=== PATIENT | male | born 1940 | race Caucasian/White ===

== ENCOUNTER 2024-01-09 02:13 | Outpatient (CLI) | payer MEDICARE, SELFPAY ==
[2024-01-09 11:38] LABS: Abs Immature Grans 0.14 10^3/uL (0.0-0.06); Absolute Basophil Count 0.02 10^3/uL (0.0-0.2); Absolute Eosinophil Count 0.02 10^3/uL (0.0-0.7); Absolute Lymphocyte Count 0.35 10^3/uL (1.2-3.4); Absolute Monocyte Count 0.62 10^3/uL (0.1-0.8); Absolute Neutrophil Count 2.24 10^3/uL (1.2-6.7); Basophils % 0.6 %; Eosinophils % 0.6 %; HCT 36.4 % (40.0-50.0); Immature Grans % 4.1 %; Lymphocytes % 10.3 %; MCH 31.7 pg (27.0-33.0); MCV 96 fL (80-95); MPV 8.3 fL (8.0-11.0); Monocytes % 18.3 %; Neutrophils % 66.1 %; Platelet Count 135 10^3/uL (130-400); RBC 3.79 10^6/uL (4.36-5.78); RDW 14.2 % (11.8-14.1); RDW-SD 43.6 fL; WBC 3.39 10^3/uL (4.4-10.8)
[2024-01-09 12:04] LABS: ALT 31 U/L (16-63); AST 18 U/L (15-37); Albumin 3.2 g/dL (3.4-5.0); Alkaline Phosphatase 88 U/L (46-116); Anion Gap 5.9 mmol/L (3-11); BUN 15 mg/dL (7-18); Bilirubin, Total 0.56 mg/dL (0.2-1.0); CO2 31.1 mmol/L (21.0-32.0); CREATININE 1.1 mg/dL (0.70-1.30); Calcium 9.3 mg/dL (8.5-10.1); Chloride 99 mmol/L (98-107); Estimated GFR 67.44 (mL/min/1.73m2); Glucose 118 mg/dL (74-106); Magnesium 2.2 mg/dL (1.8-2.4); Potassium 4.3 mmol/L (3.5-5.1); Sodium 136 mmol/L (136-145); TSH 1.33 uIU/mL (0.36-3.74)
== END 2024-01-09 02:14 | disposition home or self-care (01) ==
LOC: LBO 02:14
PROVIDERS: PCP Internal Medicine; Visit Provider Internal Medicine Medical Oncology
DX: Z79.899 Other long term (current) drug therapy (principal); C79.51 Secondary malignant neoplasm of bone; C45.9 Mesothelioma, unspecified
CPT/HCPCS: 36415; 80053; 83735; 84439; 84443; 85025

== ENCOUNTER 2024-01-31 13:55 | Outpatient (REF) | payer MEDICARE, SELFPAY ==
[2024-01-31 14:02] LABS: Abs Immature Grans 0.12 10^3/uL (0.0-0.06); Absolute Basophil Count 0.01 10^3/uL (0.0-0.2); Absolute Eosinophil Count 0.04 10^3/uL (0.0-0.7); Absolute Lymphocyte Count 0.46 10^3/uL (1.2-3.4); Absolute Neutrophil Count 1.57 10^3/uL (1.2-6.7); Basophils % 0.4 %; Eosinophils % 1.5 %; HCT 29.8 % (40.0-50.0); HGB 9.9 g/dL (13.5-17.5); Immature Grans % 4.4 %; MCHC 33.2 % (32.0-36.0); MCV 99 fL (80-95); MPV 8.9 fL (8.0-11.0); Monocytes % 18.5 %; Neutrophils % 58.2 %; Platelet Count 180 10^3/uL (130-400); RDW 18.4 % (11.8-14.1); RDW-SD 57.4 fL
[2024-01-31 14:29] LABS: ALT 33 U/L (16-63); AST 23 U/L (15-37); Albumin 3.2 g/dL (3.4-5.0); Alkaline Phosphatase 102 U/L (46-116); Anion Gap 6.3 mmol/L (3-11); BUN 12 mg/dL (7-18); Bilirubin, Total 0.35 mg/dL (0.2-1.0); CO2 28.7 mmol/L (21.0-32.0); CREATININE 0.9 mg/dL (0.70-1.30); Calcium 8.5 mg/dL (8.5-10.1); Chloride 102 mmol/L (98-107); FREE T4 0.84 ng/dL (0.76-1.46); Glucose 110 mg/dL (74-106); Magnesium 1.7 mg/dL (1.8-2.4); Potassium 3.9 mmol/L (3.5-5.1); Sodium 137 mmol/L (136-145); TSH 1.76 uIU/mL (0.36-3.74); Total Protein 6.4 g/dL (6.4-8.2)
== END 2024-01-31 13:56 | disposition home or self-care (01) ==
LOC: LBN 13:55
PROVIDERS: PCP Internal Medicine; Visit Provider Internal Medicine Medical Oncology
DX: Z79.899 Other long term (current) drug therapy (principal); C45.9 Mesothelioma, unspecified; Z51.5 Encounter for palliative care; J38.00 Paralysis of vocal cords and larynx, unspecified; C79.9 Secondary malignant neoplasm of unspecified site; C79.51 Secondary malignant neoplasm of bone; R06.02 Shortness of breath; Z71.89 Other specified counseling; R63.4 Abnormal weight loss
CPT/HCPCS: 80053; 83735; 84439; 84443; 85025

== ENCOUNTER 2024-03-12 02:07 | Outpatient (RCR) | payer MEDICARE, SELFPAY ==
[2024-02-21 10:27] LABS: Abs Immature Grans 0.11 10^3/uL (0.0-0.06); Absolute Basophil Count 0.03 10^3/uL (0.0-0.2); Absolute Eosinophil Count 0.04 10^3/uL (0.0-0.7); Absolute Lymphocyte Count 0.37 10^3/uL (1.2-3.4); Absolute Monocyte Count 0.56 10^3/uL (0.1-0.8); Absolute Neutrophil Count 2.18 10^3/uL (1.2-6.7); Basophils % 0.9 %; Eosinophils % 1.2 %; HCT 26.9 % (40.0-50.0); HGB 8.8 g/dL (13.5-17.5); Immature Grans % 3.3 %; Lymphocytes % 11.2 %; MCH 33.5 pg (27.0-33.0); MCHC 32.7 % (32.0-36.0); MCV 102 fL (80-95); MPV 8.6 fL (8.0-11.0); Neutrophils % 66.4 %; Platelet Count 131 10^3/uL (130-400); RBC 2.63 10^6/uL (4.36-5.78); RDW 21.5 % (11.8-14.1); WBC 3.29 10^3/uL (4.4-10.8)
[2024-02-21 10:50] LABS: Anisocytosis 2+; Diff Comment RBC Morph Reviewed; Polychromasia Present
[2024-02-21 10:51] LABS: ALT 28 U/L (16-63); AST 21 U/L (15-37); Albumin 3.1 g/dL (3.4-5.0); Alkaline Phosphatase 101 U/L (46-116); Anion Gap 6.8 mmol/L (3-11); BUN 15 mg/dL (7-18); Bilirubin, Total 0.55 mg/dL (0.2-1.0); CO2 30.2 mmol/L (21.0-32.0); Calcium 8.8 mg/dL (8.5-10.1); Chloride 101 mmol/L (98-107); Estimated GFR 75.61 (mL/min/1.73m2); FREE T4 0.96 ng/dL (0.76-1.46); Glucose 112 mg/dL (74-106); Magnesium 1.8 mg/dL (1.8-2.4); Potassium 4.1 mmol/L (3.5-5.1); Sodium 138 mmol/L (136-145); TSH 1.74 uIU/mL (0.36-3.74); Total Protein 7.1 g/dL (6.4-8.2)
[2024-02-21] MEDS: Normal Saline Flush 10 ML SYR IVP (10:57)
[2024-03-12] MEDS: Normal Saline Flush 10 ML SYR IVP (12:13)
[2024-03-12 12:26] LABS: Abs Immature Grans 0.12 10^3/uL (0.0-0.06); Absolute Basophil Count 0.02 10^3/uL (0.0-0.2); Absolute Eosinophil Count 0.09 10^3/uL (0.0-0.7); Absolute Lymphocyte Count 0.48 10^3/uL (1.2-3.4); Absolute Monocyte Count 0.54 10^3/uL (0.1-0.8); Basophils % 0.8 %; Eosinophils % 3.5 %; HCT 25.5 % (40.0-50.0); HGB 8.3 g/dL (13.5-17.5); Immature Grans % 4.7 %; Lymphocytes % 18.8 %; MCH 34.6 pg (27.0-33.0); MCHC 32.5 % (32.0-36.0); MCV 106 fL (80-95); MPV 9.3 fL (8.0-11.0); Monocytes % 21.2 %; Platelet Count 156 10^3/uL (130-400); RDW-SD 84.9 fL; WBC 2.55 10^3/uL (4.4-10.8)
[2024-03-12 12:37] LABS: Anisocytosis 2+; Macrocytosis 1+
[2024-03-12 13:04] LABS: ALT 33 U/L (16-63); AST 25 U/L (15-37); Alkaline Phosphatase 95 U/L (46-116); Anion Gap 6.8 mmol/L (3-11); BUN 11 mg/dL (7-18); Bilirubin, Total 0.34 mg/dL (0.2-1.0); CO2 29.2 mmol/L (21.0-32.0); CREATININE 1.1 mg/dL (0.70-1.30); Calcium 8.7 mg/dL (8.5-10.1); Chloride 102 mmol/L (98-107); Estimated GFR 67.44 (mL/min/1.73m2); FREE T4 0.81 ng/dL (0.76-1.46); Glucose 112 mg/dL (74-106); Magnesium 1.7 mg/dL (1.8-2.4); Potassium 4.2 mmol/L (3.5-5.1); Sodium 138 mmol/L (136-145); TSH 1.87 uIU/mL (0.36-3.74); Total Protein 6.7 g/dL (6.4-8.2)
== END 2024-03-13 23:59 | disposition home or self-care (01) ==
LOC: INF 02:07
PROVIDERS: PCP Internal Medicine; Visit Provider Internal Medicine Medical Oncology
DX: C45.9 Mesothelioma, unspecified (principal); C79.51 Secondary malignant neoplasm of bone; Z79.899 Other long term (current) drug therapy; Z45.2 Encounter for adjustment and management of vascular access device
CPT/HCPCS: 36591; 80053; 83735; 84439; 84443; 85025

== ENCOUNTER 2024-04-03 02:08 | Outpatient (RCR) | payer MEDICARE, SELFPAY ==
[2024-04-03 09:59] LABS: Abs Immature Grans 0.16 10^3/uL (0.0-0.06); Absolute Basophil Count 0.05 10^3/uL (0.0-0.2); Absolute Eosinophil Count 0.07 10^3/uL (0.0-0.7); Absolute Lymphocyte Count 0.49 10^3/uL (1.2-3.4); Absolute Monocyte Count 0.54 10^3/uL (0.1-0.8); Absolute Neutrophil Count 2.32 10^3/uL (1.2-6.7); Basophils % 1.4 %; Eosinophils % 1.9 %; HCT 29.1 % (40.0-50.0); HGB 9.3 g/dL (13.5-17.5); Immature Grans % 4.4 %; Lymphocytes % 13.5 %; MCH 36.3 pg (27.0-33.0); MCV 114 fL (80-95); MPV 9.2 fL (8.0-11.0); Monocytes % 14.9 %; Neutrophils % 63.9 %; Platelet Count 154 10^3/uL (130-400); RBC 2.56 10^6/uL (4.36-5.78); RDW-SD 91.5 fL; WBC 3.63 10^3/uL (4.4-10.8)
[2024-04-03] MEDS: Normal Saline Flush 10 ML SYR IVP (10:08)
[2024-04-03 10:10] LABS: Diff Comment RBC Morph Reviewed
[2024-04-03 10:11] LABS: Anisocytosis 2+; Macrocytosis 2+; Polychromasia Present
[2024-04-03 10:35] LABS: ALT 47 U/L (16-63); AST 33 U/L (15-37); Albumin 3.3 g/dL (3.4-5.0); Alkaline Phosphatase 87 U/L (46-116); Anion Gap 5.6 mmol/L (3-11); BUN 11 mg/dL (7-18); Bilirubin, Total 0.49 mg/dL (0.2-1.0); CO2 30.4 mmol/L (21.0-32.0); Chloride 104 mmol/L (98-107); Estimated GFR 75.61 (mL/min/1.73m2); FREE T4 0.78 ng/dL (0.76-1.46); Glucose 119 mg/dL (74-106); Magnesium 1.7 mg/dL (1.8-2.4); Potassium 4.3 mmol/L (3.5-5.1); Sodium 140 mmol/L (136-145); TSH 2.56 uIU/mL (0.36-3.74)
== END 2024-04-13 23:59 | disposition home or self-care (01) ==
LOC: INF 02:08
PROVIDERS: PCP Internal Medicine; Visit Provider Internal Medicine Medical Oncology
DX: C79.51 Secondary malignant neoplasm of bone (principal); C45.9 Mesothelioma, unspecified; Z79.899 Other long term (current) drug therapy
CPT/HCPCS: 36591; 80053; 83735; 84439; 84443; 85025

== ENCOUNTER 2024-04-23 02:28 | Outpatient (RCR) | payer MEDICARE, SELFPAY ==
[2024-04-23] MEDS: Normal Saline Flush 10 ML SYR IVP (09:11)
[2024-04-23 09:52] LABS: Abs Immature Grans 0.21 10^3/uL (0.0-0.06); Absolute Basophil Count 0.03 10^3/uL (0.0-0.2); Absolute Eosinophil Count 0.12 10^3/uL (0.0-0.7); Absolute Lymphocyte Count 0.45 10^3/uL (1.2-3.4); Absolute Neutrophil Count 3.16 10^3/uL (1.2-6.7); Basophils % 0.7 %; Eosinophils % 2.6 %; HCT 30.4 % (40.0-50.0); HGB 9.9 g/dL (13.5-17.5); Immature Grans % 4.6 %; Lymphocytes % 9.8 %; MCH 36.7 pg (27.0-33.0); MCHC 32.6 % (32.0-36.0); MCV 113 fL (80-95); MPV 9.2 fL (8.0-11.0); Monocytes % 13.1 %; Neutrophils % 69.2 %; Platelet Count 179 10^3/uL (130-400); RDW 19.1 % (11.8-14.1); RDW-SD 79.3 fL; WBC 4.57 10^3/uL (4.4-10.8)
[2024-04-23 10:04] LABS: ALT 43 U/L (16-63); AST 35 U/L (15-37); Albumin 3.4 g/dL (3.4-5.0); Alkaline Phosphatase 92 U/L (46-116); Anion Gap 2.5 mmol/L (3-11); BUN 15 mg/dL (7-18); Bilirubin, Total 0.57 mg/dL (0.2-1.0); CO2 32.5 mmol/L (21.0-32.0); CREATININE 1.1 mg/dL (0.70-1.30); Calcium 9.1 mg/dL (8.5-10.1); Chloride 104 mmol/L (98-107); Estimated GFR 67.44 (mL/min/1.73m2); FREE T4 0.86 ng/dL (0.76-1.46); Glucose 112 mg/dL (74-106); Magnesium 1.9 mg/dL (1.8-2.4); Potassium 4.3 mmol/L (3.5-5.1); Sodium 139 mmol/L (136-145); TSH 2.41 uIU/mL (0.36-3.74); Total Protein 7.3 g/dL (6.4-8.2)
== END 2024-05-11 23:59 | disposition home or self-care (01) ==
LOC: INF 02:28
PROVIDERS: PCP Internal Medicine; Visit Provider Internal Medicine Medical Oncology
DX: C79.51 Secondary malignant neoplasm of bone (principal); C45.9 Mesothelioma, unspecified; Z79.899 Other long term (current) drug therapy
CPT/HCPCS: 36591; 80053; 83735; 84439; 84443; 85025

== ENCOUNTER 2024-05-21 03:40 | Outpatient (RCR) | payer MEDICARE, SELFPAY ==
[2024-05-21] MEDS: Normal Saline Flush 10 ML SYR IVP (12:28)
[2024-05-21 12:43] LABS: Abs Immature Grans 0.12 10^3/uL (0.0-0.06); Absolute Basophil Count 0.05 10^3/uL (0.0-0.2); Absolute Eosinophil Count 0.09 10^3/uL (0.0-0.7); Absolute Lymphocyte Count 0.47 10^3/uL (1.2-3.4); Absolute Monocyte Count 0.58 10^3/uL (0.1-0.8); Absolute Neutrophil Count 2.27 10^3/uL (1.2-6.7); Basophils % 1.4 %; Eosinophils % 2.5 %; HCT 35.4 % (40.0-50.0); HGB 11.7 g/dL (13.5-17.5); Immature Grans % 3.4 %; Lymphocytes % 13.1 %; MCH 36.9 pg (27.0-33.0); MCHC 33.1 % (32.0-36.0); MCV 112 fL (80-95); MPV 9.5 fL (8.0-11.0); Monocytes % 16.2 %; Neutrophils % 63.4 %; Platelet Count 118 10^3/uL (130-400); RBC 3.17 10^6/uL (4.36-5.78); RDW 16.2 % (11.8-14.1); RDW-SD 67.7 fL; WBC 3.58 10^3/uL (4.4-10.8)
[2024-05-21 13:14] LABS: ALT 35 U/L (16-63); AST 36 U/L (15-37); Albumin 3.6 g/dL (3.4-5.0); Alkaline Phosphatase 86 U/L (46-116); Anion Gap 7.5 mmol/L (3-11); BUN 12 mg/dL (7-18); Bilirubin, Total 0.6 mg/dL (0.2-1.0); CO2 29.5 mmol/L (21.0-32.0); CREATININE 1.1 mg/dL (0.70-1.30); Calcium 9.1 mg/dL (8.5-10.1); Chloride 103 mmol/L (98-107); Estimated GFR 67.44 (mL/min/1.73m2); Glucose 123 mg/dL (74-106); Magnesium 1.8 mg/dL; Potassium 4.2 mmol/L (3.5-5.1); Sodium 140 mmol/L (136-145); TSH 2.64 uIU/mL (0.36-3.74); Total Protein 7.3 g/dL (6.4-8.2)
[2024-05-21 22:08] LABS: T4, Free 0.9 ng/dL (0.8-2.2)
== END 2024-06-11 23:59 | disposition home or self-care (01) ==
LOC: INF 03:40
PROVIDERS: PCP Internal Medicine; Visit Provider Internal Medicine Medical Oncology
DX: C45.9 Mesothelioma, unspecified (principal); C79.51 Secondary malignant neoplasm of bone; Z79.899 Other long term (current) drug therapy
CPT/HCPCS: 36591; 80053; 83735; 84439; 84443; 85025

== ENCOUNTER 2024-06-18 03:06 | Outpatient (RCR) | payer MEDICARE, SELFPAY ==
[2024-06-18 12:56] LABS: Abs Immature Grans 0.09 10^3/uL (0.0-0.06); Absolute Basophil Count 0.06 10^3/uL (0.0-0.2); Absolute Eosinophil Count 0.14 10^3/uL (0.0-0.7); Absolute Lymphocyte Count 0.71 10^3/uL (1.2-3.4); Absolute Monocyte Count 0.61 10^3/uL (0.1-0.8); Absolute Neutrophil Count 2.53 10^3/uL (1.2-6.7); Basophils % 1.4 %; Eosinophils % 3.4 %; HCT 38.5 % (40.0-50.0); HGB 12.7 g/dL (13.5-17.5); Immature Grans % 2.2 %; Lymphocytes % 17.1 %; MCH 36.6 pg (27.0-33.0); MCV 111 fL (80-95); MPV 8.9 fL (8.0-11.0); Monocytes % 14.7 %; Neutrophils % 61.2 %; Platelet Count 102 10^3/uL (130-400); RBC 3.47 10^6/uL (4.36-5.78); RDW 14.7 % (11.8-14.1); WBC 4.14 10^3/uL (4.4-10.8)
[2024-06-18] MEDS: Normal Saline Flush 10 ML SYR IVP (13:07)
[2024-06-18 13:41] LABS: ALT 33 U/L (16-63); AST 32 U/L (15-37); Albumin 3.7 g/dL (3.4-5.0); Alkaline Phosphatase 82 U/L (46-116); Anion Gap 6.6 mmol/L (3-11); BUN 17 mg/dL (7-18); Bilirubin, Total 0.4 mg/dL (0.2-1.0); CO2 28.4 mmol/L (21.0-32.0); Calcium 9.3 mg/dL (8.5-10.1); Chloride 103 mmol/L (98-107); Estimated GFR 75.61 (mL/min/1.73m2); FREE T4 0.81 ng/dL (0.76-1.46); Glucose 112 mg/dL (74-106); Magnesium 1.8 mg/dL; Potassium 4.3 mmol/L (3.5-5.1); Sodium 138 mmol/L (136-145); TSH 2.52 uIU/mL (0.36-3.74); Total Protein 7.4 g/dL (6.4-8.2)
== END 2024-07-11 23:59 | disposition home or self-care (01) ==
LOC: INF 03:06
PROVIDERS: PCP Internal Medicine; Visit Provider Internal Medicine Medical Oncology
DX: C45.9 Mesothelioma, unspecified (principal); C79.51 Secondary malignant neoplasm of bone; Z79.899 Other long term (current) drug therapy
CPT/HCPCS: 36591; 80053; 83735; 84439; 84443; 85025

== ENCOUNTER 2024-07-16 02:08 | Outpatient (RCR) | payer MEDICARE, SELFPAY ==
[2024-07-16] MEDS: Normal Saline Flush 10 ML SYR IVP (13:02)
[2024-07-16 13:45] LABS: Abs Immature Grans 0.06 10^3/uL (0.0-0.06); Absolute Basophil Count 0.05 10^3/uL (0.0-0.2); Absolute Lymphocyte Count 0.65 10^3/uL (1.2-3.4); Absolute Monocyte Count 0.54 10^3/uL (0.1-0.8); Absolute Neutrophil Count 2.32 10^3/uL (1.2-6.7); Basophils % 1.3 %; Eosinophils % 2.7 %; Immature Grans % 1.6 %; Lymphocytes % 17.5 %; MCH 37.4 pg (27.0-33.0); MCHC 35.1 % (32.0-36.0); MCV 106 fL (80-95); MPV 9.7 fL (8.0-11.0); Monocytes % 14.5 %; Neutrophils % 62.4 %; Platelet Count 108 10^3/uL (130-400); RBC 3.48 10^6/uL (4.36-5.78); RDW 14.6 % (11.8-14.1); RDW-SD 56.6 fL; WBC 3.72 10^3/uL (4.4-10.8)
[2024-07-16 14:09] LABS: ALT 31 U/L (16-63); AST 31 U/L (15-37); Albumin 3.6 g/dL (3.4-5.0); Alkaline Phosphatase 90 U/L (46-116); Anion Gap 4.7 mmol/L (3-11); BUN 19 mg/dL (7-18); Bilirubin, Total 0.6 mg/dL (0.2-1.0); CO2 30.3 mmol/L (21.0-32.0); CREATININE 1.1 mg/dL (0.70-1.30); Calcium 9.1 mg/dL (8.5-10.1); Chloride 102 mmol/L (98-107); Estimated GFR 67.02 (mL/min/1.73m2); FREE T4 0.84 ng/dL (0.76-1.46); Glucose 103 mg/dL (74-106); Magnesium 1.7 mg/dL (1.8-2.4); Potassium 4.3 mmol/L (3.5-5.1); Sodium 137 mmol/L (136-145); TSH 2.08 uIU/mL (0.36-3.74); Total Protein 7.2 g/dL (6.4-8.2)
== END 2024-08-11 23:59 | disposition home or self-care (01) ==
LOC: INF 02:08
PROVIDERS: PCP Internal Medicine; Visit Provider Internal Medicine Medical Oncology
DX: C45.9 Mesothelioma, unspecified (principal); C79.51 Secondary malignant neoplasm of bone; Z79.899 Other long term (current) drug therapy
CPT/HCPCS: 36591; 80053; 83735; 84439; 84443; 85025

== ENCOUNTER 2024-09-04 02:40 | Outpatient (RCR) | payer MEDICARE, SELFPAY ==
[2024-08-13] MEDS: Normal Saline Flush 10 ML SYR IVP (13:37)
[2024-08-13 14:05] LABS: HCT 39.5 % (40.0-50.0); HGB 13.4 g/dL (13.5-17.5); MCH 36.2 pg (27.0-33.0); MCHC 33.9 % (32.0-36.0); MCV 107 fL (80-95); MPV 9.1 fL (8.0-11.0); Platelet Count 104 10^3/uL (130-400); RDW 14.5 % (11.8-14.1); RDW-SD 57.3 fL; WBC 5.67 10^3/uL (4.4-10.8)
[2024-08-13 14:23] LABS: Absolute Monocyte Count 0.17 10^3/uL (0.1-0.8); Absolute Neutrophil Count 4.82 10^3/uL (1.2-6.7); Bands % 2 %
[2024-08-13 14:24] LABS: Diff Comment Manual Differential; Macrocytosis 1+; Myelocytes % 3; Promyelocytes % 2
[2024-08-13 14:28] LABS: ALT 39 U/L (16-63); AST 28 U/L (15-37); Albumin 3.7 g/dL (3.4-5.0); Alkaline Phosphatase 77 U/L (46-116); Anion Gap 7.7 mmol/L (3-11); BUN 25 mg/dL (7-18); Bilirubin, Total 0.6 mg/dL (0.2-1.0); CO2 30.3 mmol/L (21.0-32.0); Calcium 8.8 mg/dL (8.5-10.1); Chloride 99 mmol/L (98-107); Estimated GFR 75.14 (mL/min/1.73m2); FREE T4 0.96 ng/dL (0.76-1.46); Glucose 149 mg/dL (74-106); Magnesium 1.8 mg/dL (1.8-2.4); Potassium 4.4 mmol/L (3.5-5.1); Sodium 137 mmol/L (136-145); TSH 1.22 uIU/mL (0.36-3.74); Total Protein 7.2 g/dL (6.4-8.2)
[2024-09-04] MEDS: Normal Saline Flush 10 ML SYR IVP (12:21)
[2024-09-04 12:39] LABS: Abs Immature Grans 0.19 10^3/uL (0.0-0.06); Absolute Basophil Count 0.06 10^3/uL (0.0-0.2); Absolute Lymphocyte Count 0.62 10^3/uL (1.2-3.4); Absolute Monocyte Count 0.53 10^3/uL (0.1-0.8); Absolute Neutrophil Count 2.83 10^3/uL (1.2-6.7); Basophils % 1.4 %; Eosinophils % 4.5 %; HCT 39.2 % (40.0-50.0); HGB 12.9 g/dL (13.5-17.5); Immature Grans % 4.3 %; MCH 34.7 pg (27.0-33.0); MCHC 32.9 % (32.0-36.0); MCV 105 fL (80-95); MPV 9.1 fL (8.0-11.0); Neutrophils % 63.8 %; Platelet Count 127 10^3/uL (130-400); RBC 3.72 10^6/uL (4.36-5.78); RDW 12.7 % (11.8-14.1); RDW-SD 49.5 fL; WBC 4.43 10^3/uL (4.4-10.8)
[2024-09-04 13:05] LABS: ALT 31 U/L (16-63); AST 23 U/L (15-37); Albumin 3.5 g/dL (3.4-5.0); Alkaline Phosphatase 76 U/L (46-116); Anion Gap 5.6 mmol/L (3-11); BUN 18 mg/dL (7-18); Bilirubin, Total 0.5 mg/dL (0.2-1.0); CO2 31.4 mmol/L (21.0-32.0); Calcium 8.9 mg/dL (8.5-10.1); Chloride 102 mmol/L (98-107); Estimated GFR 75.14 (mL/min/1.73m2); FREE T4 0.83 ng/dL (0.76-1.46); Glucose 103 mg/dL (74-106); Magnesium 1.9 mg/dL (1.8-2.4); Potassium 4.4 mmol/L (3.5-5.1); Sodium 139 mmol/L (136-145); TSH 2.02 uIU/mL (0.36-3.74); Total Protein 6.9 g/dL (6.4-8.2)
== END 2024-09-10 23:59 | disposition home or self-care (01) ==
LOC: INF 02:40
PROVIDERS: PCP Internal Medicine; Visit Provider Internal Medicine Medical Oncology
DX: C79.51 Secondary malignant neoplasm of bone (principal); Z79.899 Other long term (current) drug therapy; Z45.2 Encounter for adjustment and management of vascular access device
CPT/HCPCS: 36591; 80053; 83735; 84439; 84443; 85025

== ENCOUNTER 2024-09-24 02:44 | Outpatient (RCR) | payer MEDICARE, SELFPAY ==
[2024-09-24] MEDS: Normal Saline Flush 10 ML SYR IVP ×2 (10:50→11:14)
[2024-09-24 11:03] LABS: Abs Immature Grans 0.15 10^3/uL (0.0-0.06); HCT 40.5 % (40.0-50.0); HGB 13.5 g/dL (13.5-17.5); Immature Grans % 4.3 %; MCH 33.9 pg (27.0-33.0); MCHC 33.3 % (32.0-36.0); MCV 102 fL (80-95); MPV 9.1 fL (8.0-11.0); Platelet Count 114 10^3/uL (130-400); RBC 3.98 10^6/uL (4.36-5.78); RDW 12.3 % (11.8-14.1); RDW-SD 46.2 fL; WBC 3.51 10^3/uL (4.4-10.8)
[2024-09-24 11:42] LABS: ALT 27 U/L (16-63); AST 27 U/L (15-37); Albumin 3.5 g/dL (3.4-5.0); Alkaline Phosphatase 83 U/L (46-116); Anion Gap 6.7 mmol/L (3-11); BUN 14 mg/dL (7-18); Bilirubin, Total 0.6 mg/dL (0.2-1.0); CO2 30.3 mmol/L (21.0-32.0); Calcium 8.7 mg/dL (8.5-10.1); Chloride 103 mmol/L (98-107); Estimated GFR 75.14 (mL/min/1.73m2); Glucose 117 mg/dL (74-106); Magnesium 1.9 mg/dL (1.8-2.4); Potassium 4.0 mmol/L (3.5-5.1); Sodium 140 mmol/L (136-145); TSH 2.38 uIU/mL (0.36-3.74); Total Protein 6.9 g/dL (6.4-8.2)
== END 2024-10-11 23:59 | disposition home or self-care (01) ==
LOC: INF 02:44
PROVIDERS: PCP Internal Medicine; Visit Provider Internal Medicine Medical Oncology
DX: C79.51 Secondary malignant neoplasm of bone (principal); C45.9 Mesothelioma, unspecified; Z79.899 Other long term (current) drug therapy
CPT/HCPCS: 36591; 80053; 83735; 84439; 84443; 85025

== ENCOUNTER 2024-11-05 03:31 | Outpatient (RCR) | payer MEDICARE, SELFPAY ==
[2024-10-16] MEDS: Normal Saline Flush 10 ML SYR IVP (10:28)
[2024-10-16 10:35] LABS: Abs Immature Grans 0.13 10^3/uL (0.0-0.06); HCT 42.2 % (40.0-50.0); HGB 13.9 g/dL (13.5-17.5); Immature Grans % 4.1 %; MCH 32.6 pg (27.0-33.0); MCHC 32.9 % (32.0-36.0); MCV 99 fL (80-95); MPV 8.8 fL (8.0-11.0); Platelet Count 104 10^3/uL (130-400); RBC 4.26 10^6/uL (4.36-5.78); RDW 12.5 % (11.8-14.1); RDW-SD 44.9 fL; WBC 3.18 10^3/uL (4.4-10.8)
[2024-10-16 11:11] LABS: ALT 25 U/L (16-63); AST 26 U/L (15-37); Albumin 3.5 g/dL (3.4-5.0); Alkaline Phosphatase 76 U/L (46-116); Anion Gap 2.0 mmol/L (3-11); BUN 13 mg/dL (7-18); Bilirubin, Total 0.5 mg/dL (0.2-1.0); CO2 33.0 mmol/L (21.0-32.0); Calcium 8.6 mg/dL (8.5-10.1); Chloride 103 mmol/L (98-107); Estimated GFR 75.14 (mL/min/1.73m2); Glucose 128 mg/dL (74-106); Magnesium 2.3 mg/dL (1.8-2.4); Potassium 4.5 mmol/L (3.5-5.1); Sodium 138 mmol/L (136-145); TSH 1.84 uIU/mL (0.36-3.74); Total Protein 6.9 g/dL (6.4-8.2)
[2024-11-05 09:34] LABS: Abs Immature Grans 0.08 10^3/uL (0.0-0.06); HCT 42.9 % (40.0-50.0); HGB 14.3 g/dL (13.5-17.5); Immature Grans % 2.2 %; MCH 32.6 pg (27.0-33.0); MCHC 33.3 % (32.0-36.0); MCV 98 fL (80-95); MPV 9.4 fL (8.0-11.0); Platelet Count 102 10^3/uL (130-400); RBC 4.38 10^6/uL (4.36-5.78); RDW 12.1 % (11.8-14.1); RDW-SD 44.1 fL; WBC 3.69 10^3/uL (4.4-10.8)
[2024-11-05 10:11] LABS: ALT 29 U/L (16-63); AST 27 U/L (15-37); Albumin 3.5 g/dL (3.4-5.0); Alkaline Phosphatase 76 U/L (46-116); Anion Gap 6.1 mmol/L (3-11); BUN 15 mg/dL (7-18); Bilirubin, Total 0.6 mg/dL (0.2-1.0); CO2 30.9 mmol/L (21.0-32.0); Calcium 8.7 mg/dL (8.5-10.1); Chloride 102 mmol/L (98-107); Estimated GFR 75.14 (mL/min/1.73m2); Glucose 119 mg/dL (74-106); Magnesium 2.0 mg/dL (1.8-2.4); Potassium 4.4 mmol/L (3.5-5.1); Sodium 139 mmol/L (136-145); TSH 2.36 uIU/mL (0.36-3.74); Total Protein 7.0 g/dL (6.4-8.2)
[2024-11-05] MEDS: Normal Saline Flush 10 ML SYR IVP (10:21)
== END 2024-11-11 23:59 | disposition home or self-care (01) ==
LOC: INF 03:31
PROVIDERS: PCP Internal Medicine; Visit Provider Internal Medicine Medical Oncology
DX: C79.51 Secondary malignant neoplasm of bone (principal); C45.9 Mesothelioma, unspecified; Z79.899 Other long term (current) drug therapy; Z45.2 Encounter for adjustment and management of vascular access device
CPT/HCPCS: 36591; 80053; 83735; 84439; 84443; 85025

== ENCOUNTER 2024-11-27 04:08 | Outpatient (RCR) | payer MEDICARE, SELFPAY ==
[2024-11-27 09:37] LABS: Abs Immature Grans 0.07 10^3/uL (0.0-0.06); HCT 42.7 % (40.0-50.0); HGB 14.1 g/dL (13.5-17.5); Immature Grans % 2.1 %; MCH 31.8 pg (27.0-33.0); MCHC 33.0 % (32.0-36.0); MCV 96 fL (80-95); MPV 9.1 fL (8.0-11.0); Platelet Count 109 10^3/uL (130-400); RBC 4.43 10^6/uL (4.36-5.78); RDW 12.2 % (11.8-14.1); RDW-SD 43.3 fL; WBC 3.38 10^3/uL (4.4-10.8)
[2024-11-27 10:08] LABS: ALT 25 U/L (16-63); AST 26 U/L (15-37); Albumin 3.6 g/dL (3.4-5.0); Alkaline Phosphatase 76 U/L (46-116); Anion Gap 5.0 mmol/L (3-11); BUN 12 mg/dL (7-18); Bilirubin, Total 0.6 mg/dL (0.2-1.0); CO2 31.0 mmol/L (21.0-32.0); Calcium 8.8 mg/dL (8.5-10.1); Chloride 102 mmol/L (98-107); Glucose 116 mg/dL (74-106); Magnesium 2.0 mg/dL (1.8-2.4); Potassium 4.5 mmol/L (3.5-5.1); Sodium 138 mmol/L (136-145); TSH 2.19 uIU/mL (0.36-3.74); Total Protein 7.0 g/dL (6.4-8.2)
[2024-11-27] MEDS: Normal Saline Flush 10 ML SYR IVP (11:38)
== END 2024-12-11 23:59 | disposition home or self-care (01) ==
LOC: INF 04:08
PROVIDERS: PCP Internal Medicine; Visit Provider Internal Medicine Medical Oncology
DX: C79.51 Secondary malignant neoplasm of bone (principal); Z79.899 Other long term (current) drug therapy; Z45.2 Encounter for adjustment and management of vascular access device
CPT/HCPCS: 36591; 80053; 83735; 84439; 84443; 85025

== ENCOUNTER 2024-12-17 03:21 | Outpatient (RCR) | payer MEDICARE, SELFPAY ==
[2024-12-17] MEDS: Normal Saline Flush 10 ML SYR IVP (08:45)
[2024-12-17 09:26] LABS: Abs Immature Grans 0.28 10^3/uL (0.0-0.06); HCT 44.0 % (40.0-50.0); HGB 14.4 g/dL (13.5-17.5); Immature Grans % 4.9 %; MCH 31.4 pg (27.0-33.0); MCHC 32.7 % (32.0-36.0); MCV 96 fL (80-95); MPV 9.2 fL (8.0-11.0); Platelet Count 117 10^3/uL (130-400); RBC 4.58 10^6/uL (4.36-5.78); RDW 12.7 % (11.8-14.1); RDW-SD 44.8 fL; WBC 5.66 10^3/uL (4.4-10.8)
[2024-12-17 10:08] LABS: ALT 32 U/L (16-63); AST 21 U/L (15-37); Albumin 3.4 g/dL (3.4-5.0); Alkaline Phosphatase 71 U/L (46-116); Anion Gap 6.3 mmol/L (3-11); BUN 20 mg/dL (7-18); Bilirubin, Total 0.7 mg/dL (0.2-1.0); CO2 31.7 mmol/L (21.0-32.0); Calcium 8.4 mg/dL (8.5-10.1); Chloride 101 mmol/L (98-107); Glucose 118 mg/dL (74-106); Magnesium 1.9 mg/dL (1.8-2.4); Potassium 3.9 mmol/L (3.5-5.1); Sodium 139 mmol/L (136-145); TSH (W/Ref FT4) 2.85 uIU/mL (0.36-3.74); Total Protein 6.5 g/dL (6.4-8.2)
== END 2025-01-11 23:59 | disposition home or self-care (01) ==
LOC: INF 03:21
PROVIDERS: PCP Internal Medicine; Visit Provider Internal Medicine Medical Oncology
DX: C79.51 Secondary malignant neoplasm of bone (principal); Z45.2 Encounter for adjustment and management of vascular access device
CPT/HCPCS: 36591; 80053; 83735; 84443; 85025

== ENCOUNTER 2025-01-15 01:16 | Outpatient (RCR) | payer MEDICARE, SELFPAY ==
[2025-01-15 12:28] LABS: Abs Immature Grans 0.12 10^3/uL (0.0-0.06); HCT 44.1 % (40.0-50.0); HGB 14.8 g/dL (13.5-17.5); Immature Grans % 3.5 %; MCH 31.5 pg (27.0-33.0); MCHC 33.6 % (32.0-36.0); MCV 94 fL (80-95); MPV 9.1 fL (8.0-11.0); Platelet Count 141 10^3/uL (130-400); RBC 4.70 10^6/uL (4.36-5.78); RDW 12.7 % (11.8-14.1); RDW-SD 43.6 fL; WBC 3.39 10^3/uL (4.4-10.8)
[2025-01-15] MEDS: Normal Saline Flush 10 ML SYR IVP (12:37)
[2025-01-15 12:50] LABS: ALT 29 U/L (16-63); AST 23 U/L (15-37); Albumin 3.6 g/dL (3.4-5.0); Alkaline Phosphatase 78 U/L (46-116); Anion Gap 7.6 mmol/L (3-11); BUN 14 mg/dL (7-18); Bilirubin, Total 0.5 mg/dL (0.2-1.0); CO2 30.4 mmol/L (21.0-32.0); Calcium 8.8 mg/dL (8.5-10.1); Chloride 101 mmol/L (98-107); Estimated GFR 67.02 (mL/min/1.73m2); Glucose 98 mg/dL (74-106); Magnesium 1.9 mg/dL (1.8-2.4); Potassium 4.4 mmol/L (3.5-5.1); Sodium 139 mmol/L (136-145); TSH 1.89 uIU/mL (0.36-3.74); Total Protein 7.0 g/dL (6.4-8.2)
== END 2025-02-10 23:59 | disposition home or self-care (01) ==
LOC: INF 01:16
PROVIDERS: Nurse Practitioner Family; PCP Internal Medicine; Visit Provider Internal Medicine Medical Oncology
DX: C79.51 Secondary malignant neoplasm of bone (principal); Z79.899 Other long term (current) drug therapy; Z45.2 Encounter for adjustment and management of vascular access device
CPT/HCPCS: 36591; 80053; 83735; 84439; 84443; 85025

== ENCOUNTER 2025-02-19 00:50 | Outpatient (RCR) | payer MEDICARE, SELFPAY ==
[2025-02-19] MEDS: Normal Saline Flush 10 ML SYR IVP (12:10)
[2025-02-19 12:37] LABS: Abs Immature Grans 0.19 10^3/uL (0.0-0.06); HCT 45.3 % (40.0-50.0); HGB 15.1 g/dL (13.5-17.5); Immature Grans % 5.0 %; MCH 31.7 pg (27.0-33.0); MCHC 33.3 % (32.0-36.0); MCV 95 fL (80-95); MPV 9.1 fL (8.0-11.0); Platelet Count 107 10^3/uL (130-400); RBC 4.77 10^6/uL (4.36-5.78); RDW 13.2 % (11.8-14.1); RDW-SD 46.2 fL; WBC 3.83 10^3/uL (4.4-10.8)
[2025-02-19 12:55] LABS: Magnesium 1.8 mg/dL (1.6-2.6)
[2025-02-19 12:57] LABS: ALT 23 U/L (10-49); AST 25 U/L (<34); Albumin 4.1 g/dL (3.2-5.0); Alkaline Phosphatase 59 U/L (46-116); Anion Gap 6.9 mmol/L (3-11); BUN 15 mg/dL (9-23); Bilirubin, Total 0.6 mg/dL (0.2-1.2); CO2 31.1 mmol/L (20.0-31.0); Calcium 9.1 mg/dL (8.3-10.6); Chloride 101 mmol/L (98-107); Glucose 102 mg/dL (74-106); Potassium 4.1 mmol/L (3.5-5.1); Sodium 139 mmol/L (136-145); Total Protein 6.9 g/dL (5.7-8.2)
[2025-02-19 13:00] LABS: TSH 1.89 uIU/mL (0.55-4.78)
== END 2025-03-13 23:59 | disposition home or self-care (01) ==
LOC: INF 00:50
PROVIDERS: Nurse Practitioner Family; PCP Internal Medicine; Visit Provider Internal Medicine Medical Oncology
DX: C79.51 Secondary malignant neoplasm of bone (principal); Z79.899 Other long term (current) drug therapy; Z45.2 Encounter for adjustment and management of vascular access device
CPT/HCPCS: 36591; 80053; 83735; 84439; 84443; 85025